=== PATIENT | male | born 1975 | race Two or more races ===

== ENCOUNTER 2020-04-30 12:10 | Emergency (ER) | payer MEDICAID ==
[~2020-04-30] VITALS: Ht 165.1 cm; Wt 81.6 kg
[2020-04-30] MEDS ORDERED: ONDANSETRON HCL/PF 4 MG/2 ML VIAL ONE (13:52)
[2020-04-30] MEDS ORDERED: KETOROLAC TROMETHAMINE 15 MG/ML VIAL ONE (13:52)
[2020-04-30 13:54] LABS: BASOPHILS % (AUTO) 0.4 % (0.0-2.0); EOSINOPHILS % (AUTO) 0.1 % (0.0-6.0); HEMATOCRIT 46 % (39-51); HEMOGLOBIN 15.3 g/dL (13.5-17.5); LYMPHOCYTES # (AUTO) 0.8 /CMM (0.8-4.8); LYMPHOCYTES % (AUTO) 14.7 % (20.0-44.0); MEAN CORPUSCULAR HGB CONC 34 g/dl (31.0-36.0); MEAN CORPUSCULAR VOLUME 89 fL (80-96); MONOCYTES # (AUTO) 0.5 /CMM (0.1-1.30); MONOCYTES % (AUTO) 8.4 % (2.0-12.0); NEUTROPHILS # (AUTO) 4.3 /CMM (1.8-8.9); NEUTROPHILS % (AUTO) 76.4 % (43.0-81.0); PLATELET COUNT (AUTO) 162 /CMM (150-450); RED BLOOD CELL COUNT(AUTO) 5.11 MIL/uL (4.5-6.0); WHITE BLOOD COUNT (AUTO) 5.7 K/uL (4.3-11.0)
--- NOTE | 2020-04-30 13:59 | NUR ---
Pt updated and made Aware of plan of care. Reclining in [facility] NO distress
[2020-04-30] MEDS ORDERED: ONDANSETRON HCL/PF 4 MG/2 ML VIAL IV ONE (14:00)
[2020-04-30] MEDS ORDERED: IV NS 0.9% 1,000 ML BAG IV ONE (14:00)
[2020-04-30] MEDS ORDERED: KETOROLAC TROMETHAMINE INJ 30 MG/ML VIAL IV ONE (14:00)
[2020-04-30 14:01] LABS: CALCIUM, SERUM 8.6 mg/dL (8.5-10.1); CARBON DIOXIDE 31 mmol/L (21-32); CHLORIDE 100 mmol/L (98-107); CREATININE 1.1 mg/dL (0.6-1.3); GLUCOSE 107 mg/dL (74-106); POTASSIUM 3.3 mmol/L (3.5-5.1); SODIUM SERUM 138 mmol/L (136-145); UREA NITROGEN, BLOOD 11 mg/dL (7-18)
--- NOTE | 2020-04-30 15:25 | NUR ---
Patient discharged to home in stable condition. Written and verbal after care instructions given. Patient verbalizes understanding of instruction. IV removed. Catheter intact and site benign. Pressure and 4x4 applied to site. No bleeding noted.
[2020-04-30 15:54] VITALS: BP 132/75
== END 2020-04-30 15:55 | disposition home or self-care (01) ==
LOC: ER 12:13
DX: J02.9 Acute pharyngitis, unspecified (principal); B34.9 Viral infection, unspecified; R11.0 Nausea; M79.10 Myalgia, unspecified site; R55 Syncope and collapse; E87.6 Hypokalemia; I10 Essential (primary) hypertension
CPT/HCPCS: 36415; 71045; 80048; 82962; 84484; 85025; 87070; 87880; 93005; 96374; 96375; 99285; J1885; J2405; J7030; 86403-TC

== ENCOUNTER 2020-12-03 10:02 | Inpatient (IN) | payer MEDICAID ==
[~2020-12-03] VITALS: Ht 165.1 cm; Wt 80.3 kg
--- NOTE | 2020-12-03 10:10 | NUR ---
The patient BIB for c/o testicular pain x 2 days. The patient stated having hx of hernia. He rates pain 10/10. The patient in room air and denies sob. Respiration regular and unlabored. A warm blanket provided for comfort. Will continue to monitor.
[2020-12-03] MEDS ORDERED: ONDANSETRON HCL/PF 4 MG/2 ML VIAL ONE ×2 (10:25→20:35)
[2020-12-03] MEDS ORDERED: MORPHINE SULFATE INJ 4 MG/ML DISP.SYRIN ONE (10:25)
[2020-12-03] MEDS ORDERED: ONDANSETRON HCL/PF 4 MG/2 ML VIAL IVP ONE (10:30)
[2020-12-03] MEDS ORDERED: IV NS 0.9% 1,000 ML BAG IV ONE (10:30)
[2020-12-03] MEDS ORDERED: MORPHINE SULFATE INJ 2 MG/ML DISP.SYRIN IV ONE (10:30)
[2020-12-03 10:35] LABS: BASOPHILS % (AUTO) 0.3 % (0.0-2.0); EOSINOPHILS % (AUTO) 0.9 % (0.0-6.0); HEMATOCRIT 47 % (39-51); HEMOGLOBIN 16.2 g/dL (13.5-17.5); LYMPHOCYTES # (AUTO) 1.8 /CMM (0.8-4.8); LYMPHOCYTES % (AUTO) 31.3 % (20.0-44.0); MEAN CORPUSCULAR HGB CONC 35 g/dl (31.0-36.0); MEAN CORPUSCULAR VOLUME 86 fL (80-96); MONOCYTES # (AUTO) 0.3 /CMM (0.1-1.30); MONOCYTES % (AUTO) 5.8 % (2.0-12.0); NEUTROPHILS # (AUTO) 3.6 /CMM (1.8-8.9); NEUTROPHILS % (AUTO) 61.7 % (43.0-81.0); PLATELET COUNT (AUTO) 187 /CMM (150-450); RED BLOOD CELL COUNT(AUTO) 5.45 MIL/uL (4.5-6.0); WHITE BLOOD COUNT (AUTO) 5.9 K/uL (4.3-11.0)
--- NOTE | 2020-12-03 10:35 | NUR ---
patient taken for CT.
[2020-12-03 10:45] LABS: BILIRUBIN,DIRECT 0.2 mg/dL (0.0-0.2); BILIRUBIN,TOTAL 0.9 mg/dL (0.2-1.0); CALCIUM, SERUM 9.1 mg/dL (8.5-10.1); CREATININE 1.1 mg/dL (0.6-1.3); TOTAL PROTEIN, SERUM 8.3 g/dL (6.4-8.2)
--- NOTE | 2020-12-03 10:47 | NUR ---
the patient is back from CT.
[2020-12-03 11:17] LABS: POTASSIUM 3.5 mmol/L (3.5-5.1)
[2020-12-03] MEDS ORDERED: AMLO2.5T4 PO (11:31)
[2020-12-03] MEDS ORDERED: HYDROCODONE/APAP 5/325MG TABLET PO PRN (12:00)
[2020-12-03] MEDS ORDERED: ACETAMINOPHEN 325 MG TABLET PO PRN (12:00)
[2020-12-03] MEDS ORDERED: Z GUARD REMEDY 2 OZ OINT TP PRN (12:00)
[2020-12-03] MEDS ORDERED: ZOLPIDEM TARTRATE 5 MG TABLET PO PRN (12:00)
[2020-12-03] MEDS ORDERED: ONDANSETRON HCL/PF 4 MG/2 ML VIAL IVP PRN (12:00)
[2020-12-03] MEDS ORDERED: MAGNESIUM HYDROXIDE 30 ML UDC PO PRN (12:00)
[2020-12-03] MEDS ORDERED: MAG HYDROX/AL HYDROX/SIMETH 30 ML UDC PO PRN (12:00)
--- NOTE | 2020-12-03 12:13 | NUR ---
Covid negative per lab.
--- NOTE | 2020-12-03 12:14 | NUR ---
NURSING SUP GAVE BED 106.
--- NOTE | 2020-12-03 12:17 | NUR ---
Dr Naranjo is made aware of patient`s blood pressure of 172/112 and pulse 78. Per MD she will place an order.
[2020-12-03] MEDS ORDERED: hydrALAZINE HCL IV 20 MG VIAL ONE ×2 (12:22→19:56)
[2020-12-03] MEDS ORDERED: hydrALAZINE HCL IV 20 MG VIAL IV ONE (12:30)
--- NOTE | 2020-12-03 12:44 | NUR ---
Patient is transfered to room 106. The patient left ER in stable condition. Receiving nurse is reminded to recheck the vitals since the patient had elevated BP and iv push Apresoline was given.
--- NOTE | 2020-12-03 12:51 | NUR ---
PATIENT RECEIVED IN BED ON ROOM AIR, ALERT AND ORIENTED X 4. PATIENT HAS VITALS TEMP 98.3, HR 85, RR 20, O2 SAT 99%, BP 163/102. PATIENT CURRENTLY HAS PAIN 1/10 AFTER GIVEN MORPHINE IN ER. PATIENT IS NPO FOR SURGERY AT 1630. LAC C20 G INTACT AND IN PLACE, FLUSHED WELL WITH NO SIGNS OF INFECTION OR INFILTRATION. WILL CONTINUE TO MONITOR
--- NOTE | 2020-12-03 13:00 | NUR ---
PER SPINNING FRAME TENDER MATTHEW, PATIENT TO GIVE CONSENT TO OR STAFF AFTER DR EXPLAINS PROCEDURE. PRE-OP CHECKLIST ONLY NEEDS TO BE COMPLETE.
[2020-12-03] MEDS ORDERED: ANESTHESIA TRAY IN PYXIS 1 EA TRAY MC ONE (14:56)
[2020-12-03 16:00] VITALS: BP 143/103
[2020-12-03] MEDS ORDERED: MIDAZOLAM HCL 2 MG/2ML VIAL ONE (17:36)
[2020-12-03] MEDS ORDERED: FENTANYL PF 250MCG/5ML AMPUL ONE (17:36)
[2020-12-03] MEDS ORDERED: FAMOTIDINE/PF INJ 20 MG/2 ML VIAL IV ONE (17:37)
[2020-12-03] MEDS ORDERED: HYDROMORPHONE INJ 2 MG/ML DISP.SYRIN ONE (17:37)
[2020-12-03] MEDS ORDERED: ROCURONIUM BROMIDE 50 MG/5 ML ONE (17:38)
--- NOTE | 2020-12-03 17:45 | NUR ---
PATIENT TAKEN TO OR, ABLE TO SIGN BLOOD TRANSFUSION AND ANESTHESIA CONSENT AT BEDSIDE, SURGEON TO OBTAIN PROCEDURE CONSENT IN OR. ALL BELONGINGS LEFT IN ROOM
[2020-12-03] MEDS ORDERED: BUPIVACAINE 0.25% 75 MG/30 ML VIAL ONE (18:21)
--- NOTE | 2020-12-03 18:34 | NUR ---
PATIENT REMAINS IN THE OR, WILL ENDORSE ALL NEEDS TO ONCOMING RN
[2020-12-03 20:40] VITALS: BP 138/85
--- NOTE | 2020-12-03 20:40 | NUR ---
RECEIVED PT FROM OR VIA HOSPITAL BED AWAKE A/O X4 ON O2 2L VIA NC SPO2 96% ABLE TO VERBALIZED NEEDS, V/S CHECKED AND RECORDED PUT ON TELE MONITOR WITH READING SINUS RHYTHM 70'S HAVE CLEAN DRESSING ON LOWER ABDOMEN AREA, NO BLEEDING NOTED, PT DENIES ANY PAIN AT THIS MOMENT PT ASK FOR WATER ABLE TO DRINK A LITTLE WITHOUT ANY COUGHING MAY START TO REGULAR DIET IN AM GRADUALLY STARTING TO CLEAR LIQUID FOR NOW, BED ON LOWEST POSITION AND LOCKED SIDE RAILS UP X2 CALL LIGHT WITHIN REACH WILL CONT TO MONITOR THE PT
--- NOTE | 2020-12-04 02:11 | NUR ---
PT IS FEELING NAUSEATED AND TRYING TO THROW UP OFFER HIM THE ZOFRAN BUT PT REFUSED AND SAYS YESTERDAY IT DID NOT HELP HIM, INSTEAD OFFER HIM SOME ICE CHIPS AND HE ACCEPT IT, WILL CONT TO MONITOR THE PT
[2020-12-04 04:00] VITALS: BP 108/73
--- NOTE | 2020-12-04 06:51 | NUR ---
PT ON BED ASLEEP INTERMITTENTLY EASY TO WAKE UP CURRENTLY ON ROOM AIR SPO2 94-96% NO SIGN OF DISTRESS, TELE MONITOR READS SINUS RHYTHM, NAUSEA SUBSIDE WITH ICE CHIPS, NO PAIN COMPLAINED ON THE SURGERY SITE, SURGERY DRESSING IS INTACT AND NO BLEEDING NOTED, ALL NEEDS ATTENDED, BED ON LOWEST POSITION AND LOCKED SIDE RAILS UP X 2 CALL LIGHT WITHIN REACH WILL ENDORSED TO AM SHIFT NURSE
[2020-12-04 06:52] LABS: BASOPHILS % (AUTO) 0.1 % (0.0-2.0); HEMATOCRIT 42 % (39-51); HEMOGLOBIN 14.3 g/dL (13.5-17.5); LYMPHOCYTES # (AUTO) 0.5 /CMM (0.8-4.8); LYMPHOCYTES % (AUTO) 3.6 % (20.0-44.0); MEAN CORPUSCULAR HGB CONC 34 g/dl (31.0-36.0); MEAN CORPUSCULAR VOLUME 87 fL (80-96); MONOCYTES # (AUTO) 0.4 /CMM (0.1-1.30); MONOCYTES % (AUTO) 3.3 % (2.0-12.0); NEUTROPHILS # (AUTO) 11.6 /CMM (1.8-8.9); PLATELET COUNT (AUTO) 186 /CMM (150-450); RED BLOOD CELL COUNT(AUTO) 4.88 MIL/uL (4.5-6.0); WHITE BLOOD COUNT (AUTO) 12.4 K/uL (4.3-11.0)
[2020-12-04 07:11] LABS: CALCIUM, SERUM 8.1 mg/dL (8.5-10.1); CREATININE 1.3 mg/dL (0.6-1.3); PHOSPHORUS 3.7 mg/dL (2.5-4.9); POTASSIUM 3.6 mmol/L (3.5-5.1)
--- NOTE | 2020-12-04 07:45 | NUR ---
RN OPENING NOTES Patient received up in his chair by bedside and no s/s of respiratory distress. No c/o pain or discomfort. Patient teaching done regarding safety and fall precautions. LAC 20 GAUZE noted to be patent and flushed well. Will continue to monitor. Call light within reach.
[2020-12-04 08:00] VITALS: BP 129/81
[2020-12-04] MEDS ORDERED: AMLODIPINE BESYLATE 2.5 MG TABLET PO SCH (09:00)
[2020-12-04] MEDS: MORPHINE SULFATE INJ 2 MG/ML DISP.SYRIN IV PRN ×2 (14:29→14:33)
[2020-12-04 16:00] VITALS: BP 150/81
--- NOTE | 2020-12-04 16:00 | NUR ---
Patient discharged to home in stable condition. No c/o pain or discomfort. all belongings given. Iv peripheral dc'd and no s/s of active bleeding noted. Patient teaching done regarding monitoring for s/s of infection and drainage.Patient instructed to Follow up with Dr Pierre with in a week. Left hospital in stable condition,.
== END 2020-12-04 17:30 | disposition home or self-care (01) | DRG 228 ==
LOC: ER 10:02 → MEDSG1 12:22
PROVIDERS: ADMIT Family Medicine; ATTEND Family Medicine
PROC: 0YU50JZ Supplement Right Inguinal Region with Synthetic Substitute, Open Approach (ICD-10-PCS; principal; 2020-12-03)
DX: K40.30 Unilateral inguinal hernia, with obstruction, without gangrene, not specified as recurrent (principal); I10 Essential (primary) hypertension; Z20.822 Contact with and (suspected) exposure to COVID-19; Z90.49 Acquired absence of other specified parts of digestive tract; Z79.899 Other long term (current) drug therapy; D72.829 Elevated white blood cell count, unspecified
CPT/HCPCS: 36415; 71045-TC; 80048-TC; 80061-TC; 80076-TC; 83690-TC; 83735-TC; 84100-TC; 85025-TC; 85730-TC; 87081-TC; A6209; C1781; C9803; G0378; J0360; J0690; J1170; J1885; J2250; J2270; J2405; J2704; J2765; J3010; J3490; J7030

== ENCOUNTER 2021-06-24 16:21 | Inpatient (IN) | payer MEDICAID ==
[~2021-06-24] VITALS: Ht 165.1 cm; Wt 78.0 kg
[~2021-06-24 16:21] MED LIST: AMLO2.5T4 PO
--- NOTE | 2021-06-24 16:30 | NUR ---
Patient came in to the er c/o dizziness and numbness of the left face since 9am this mronign. on room air, breathing evenly and unlabored. Connected to the monitor and pulse ox. kept comfortable, will continue to monitor accordingly.
[2021-06-24 16:58] LABS: BASOPHILS # (AUTO) 0.2 K/uL (0.0-0.2); BASOPHILS % (AUTO) 2.2 % (0.0-2.0); EOSINOPHILS % (AUTO) 2.8 % (0.0-6.0); HEMATOCRIT 46 % (39-51); HEMOGLOBIN 15.5 g/dL (13.5-17.5); LYMPHOCYTES # (AUTO) 1.2 K/uL (0.8-4.8); LYMPHOCYTES % (AUTO) 16.8 % (20.0-44.0); MEAN CORPUSCULAR HGB CONC 34 g/dl (31.0-36.0); MEAN CORPUSCULAR VOLUME 87 fL (80-96); MONOCYTES # (AUTO) 0.4 K/uL (0.1-1.30); MONOCYTES % (AUTO) 5.3 % (2.0-12.0); NEUTROPHILS # (AUTO) 5.2 K/uL (1.8-8.9); NEUTROPHILS % (AUTO) 72.9 % (43.0-81.0); PLATELET COUNT (AUTO) 204 K/uL (150-450); RED BLOOD CELL COUNT(AUTO) 5.21 MIL/uL (4.5-6.0); WHITE BLOOD COUNT (AUTO) 7.1 K/uL (4.3-11.0)
[2021-06-24] MEDS ORDERED: IV NS 0.9% 1,000 ML BAG IV ONE (17:00)
--- NOTE | 2021-06-24 17:00 | NUR ---
MOVE SHEET SUBMITTED.
[2021-06-24 17:14] LABS: ALANINE AMINOTRANSFERASE 64 U/L (12-78); ALBUMIN 4.2 g/dL (3.4-5.0); ALKALINE PHOSPHATASE 100 U/L (46-116); ASPARTATE AMINOTRANSFERASE 34 U/L (15-37); BILIRUBIN,DIRECT 0.2 mg/dL (0.0-0.2); BILIRUBIN,TOTAL 0.9 mg/dL (0.2-1.0); CALCIUM, SERUM 9.1 mg/dL (8.5-10.1); CARBON DIOXIDE 32 mmol/L (21-32); CHLORIDE 106 mmol/L (98-107); CREATININE 1.2 mg/dL (0.6-1.3); GLUCOSE 104 mg/dL (74-106); POTASSIUM 3.4 mmol/L (3.5-5.1); SODIUM SERUM 144 mmol/L (136-145); TOTAL PROTEIN, SERUM 8.5 g/dL (6.4-8.2); UREA NITROGEN, BLOOD 14 mg/dL (7-18)
[2021-06-24] MEDS ORDERED: IV NS 0.9% 250 ML IV ONE (17:26)
[2021-06-24] MEDS ORDERED: IOHEXOL-350 100 ML VIAL IV ONE (17:26)
[2021-06-24] MEDS ORDERED: LABETALOL HCL IV 100MG VIAL ONE (18:26)
[2021-06-24] MEDS ORDERED: LABETALOL HCL IV 100MG VIAL IV ONE (18:30)
[2021-06-24] MEDS ORDERED: ONDANSETRON HCL/PF 4 MG/2 ML VIAL IVP PRN (19:00)
[2021-06-24] MEDS ORDERED: MORPHINE SULFATE INJ 2 MG/ML DISP.SYRIN IV PRN (19:00)
[2021-06-24] MEDS ORDERED: hydrALAZINE HCL IV 20 MG VIAL IV ONE (19:00)
[2021-06-24] MEDS ORDERED: ACETAMINOPHEN 325 MG TABLET PO PRN (19:00)
--- NOTE | 2021-06-24 19:03 | NUR ---
covid swab collected and sent to lab.
--- NOTE | 2021-06-24 19:05 | NUR ---
REC'D REPORT FROM ODESSA MONROY FOR REBECCA
[2021-06-24] MEDS ORDERED: LABETALOL HCL IV 100MG VIAL IV PRN (19:30)
--- NOTE | 2021-06-24 19:59 | NUR ---
CALLED FOR COVID SWAB
[2021-06-24 20:33] LABS: BILIRUBIN,URINE Negative (NEGATIVE); COLOR,URINE YELLOW (YELLOW); LEUKOCYTE ESTERASE ,URINE Negative (NEGATIVE); NITRITE, URINE Negative (NEGATIVE); PH,URINE 7.5 (5.0-8.0); PROTEIN,URINE Negative (NEGATIVE); UGLUCOSE Negative (NEGATIVE)
[2021-06-24 20:35] LABS: BACTERIA,URINE Rare /HPF (None Seen); RBC,URINE NONE SEEN /HPF (0-2); SQUAMOUS EPITHELIAL CELL,UR Few /HPF (None Seen); WBC,URINE NONE SEEN /HPF (0-3)
--- NOTE | 2021-06-24 23:12 | NUR ---
TELE 322-2
--- NOTE | 2021-06-24 23:28 | NUR ---
REPORT GIVEN TO HARMEET
--- NOTE | 2021-06-25 00:07 | NUR ---
transported to [facility] on monitor per acls protocol without incident
--- NOTE | 2021-06-25 00:10 | NUR ---
FINISHING RANGE FEEDERCONTROL ROOM SUPERVISOR NOTE RECEIVED PT FROM Laurie TO RM.[id number] ACCOMPANIED BY RN. ADMITTED FOR CVA R/O. PT A/OX4, AMBULATORY WITH STEADY GAIT. NO C/O PAIN/DISCOMFORT AT THIS TIME. NOTED WITH L-FACIAL DROOP WHEN HE TALKS, AND HE REPORTS TWITCHING TO HIS L-EYE. HE DENIES ANY NUMBNESS, DIZZINESS NOR WEAKNESS AT THIS TIME. PT AMBULATED TO BR TO VOID, WITH STEADY GAIT. IV SITE ON R-AC 18G INTACT/PATENT/FLUSHES WELL. CONNECTED TO TELE MONITOR AND READS SR 67. PT IN NO ACUTE DISTRESS. ORIENTED TO ROOM AND STAFF, HEALTH TEACHINGS PROVIDED, AND INSTRUCTED TO USE CALL LIGHT FOR ASSISTANCE. PT VERBALIZED UNDERSTANDING. SAFETY MEASURES IN PLACE, BED IN LOWEST LOCKED POSITION, S/R UPX2, CALL LIGHT WITHIN REACH. WILL CONT TO MONITOR.
[2021-06-25 00:28] VITALS: BP 166/110
[2021-06-25 00:30] VITALS: BP 166/110
[2021-06-25] MEDS: hydrALAZINE HCL IV 20 MG VIAL IV PRN ×2 (01:10→09:26)
--- NOTE | 2021-06-25 01:10 | NUR ---
RN NOTE HYDRALAZINE 10MG IVP GIVEN ORDERED FOR BP 166/110
[2021-06-25] MEDS: ENOXAPARIN SODIUM 40 MG/0.4 ML DISP.SYRIN SQ SCH ×2 (01:27→21:24)
[2021-06-25 01:40] VITALS: BP 159/102
--- NOTE | 2021-06-25 01:40 | NUR ---
RN NOTE REASSESSED BP DOWN TO 159/102
--- NOTE | 2021-06-25 01:48 | NUR ---
RN NOTE GIVEN ZOFRAN ORDERED FOR C/O NAUSEA. KEPT LOW STIMULI AND LIGHTS DIMMED
--- NOTE | 2021-06-25 02:18 | NUR ---
RN NOTE REASSESSED, PT SLEEPING AT THIS TIME.
[2021-06-25 03:34] VITALS: BP 149/99
[2021-06-25 04:00] VITALS: BP 149/99
--- NOTE | 2021-06-25 04:00 | NUR ---
RN NOTE BP 149/99
--- NOTE | 2021-06-25 05:31 | NUR ---
MRI APPROVED, GENERAL FOUNDRY WORKER NOTIFIED VIA TEXT.
[2021-06-25 06:23] LABS: BASOPHILS % (AUTO) 0.3 % (0.0-2.0); EOSINOPHILS % (AUTO) 0.9 % (0.0-6.0); HEMATOCRIT 44 % (39-51); HEMOGLOBIN 14.9 g/dL (13.5-17.5); LYMPHOCYTES # (AUTO) 1.4 K/uL (0.8-4.8); LYMPHOCYTES % (AUTO) 13.7 % (20.0-44.0); MEAN CORPUSCULAR HGB CONC 34 g/dl (31.0-36.0); MEAN CORPUSCULAR VOLUME 88 fL (80-96); MONOCYTES # (AUTO) 0.4 K/uL (0.1-1.30); MONOCYTES % (AUTO) 4.1 % (2.0-12.0); NEUTROPHILS # (AUTO) 8.2 K/uL (1.8-8.9); PLATELET COUNT (AUTO) 197 K/uL (150-450); RED BLOOD CELL COUNT(AUTO) 5.04 MIL/uL (4.5-6.0); WHITE BLOOD COUNT (AUTO) 10.1 K/uL (4.3-11.0)
[2021-06-25 06:46] LABS: ALBUMIN 3.8 g/dL (3.4-5.0); BILIRUBIN,TOTAL 1.2 mg/dL (0.2-1.0); CALCIUM, SERUM 8.4 mg/dL (8.5-10.1); MAGNESIUM 2.5 mg/dL (1.8-2.4); PHOSPHORUS 2.6 mg/dL (2.5-4.9); POTASSIUM 3.4 mmol/L (3.5-5.1); TOTAL PROTEIN, SERUM 7.7 g/dL (6.4-8.2)
--- NOTE | 2021-06-25 07:10 | NUR ---
TELETYPE MECHANIC CLOSING NOTE PT AWAKE, A/OX4. NO SOB. DENIES ANY PAIN AT THIS TIME. NO C/O NUMBNESS, DIZZINESS NOR WEAKNESS AT THIS TIME. AMBULATES TO BR WITH STEADY GAIT. IV SITE ON R-AC 18G INTACT/PATENT/FLUSHES WELL. ON TELE MONITOR READING SR 82. PT FAILED NSG SWALLOW SCREEN D/T FACIAL ASYMMETRY WITH MOVEMENT. PT NPO UNTIL ST EVAL IS DONE. PT AWARE AND VERBALIZED UNDERSTANDING. NO ACUTE DISTRESS NOTED. SAFETY MEASURES MAINTAINED, BED IN LOWEST LOCKED POSITION, S/R UPX2, CALL LIGHT WITHIN REACH.
--- NOTE | 2021-06-25 07:41 | NUR ---
DRAIN TILER OPENING NOTES RECEIVED PATIENT IN BED, AWAKE, A/O X4. PATIENT ON ROOM AIR; BREATHING EVEN AND UNLABORED; NO SOB NOTED AT THIS TIME. NO COMPLAINS OF PAIN. TELE MONITOR WITH A CURRENT READING OF SR 82. IV ACCESS AT [facility] G # 18; SL. SAFETY PRECAUTIONS IN PLACE; BED IN LOW POSITION AND LOCKED, RAILS UP X2, CALL LIGHT WITHIN REACH. WILL CONTINUE TO MONITOR PATIENT.
--- NOTE | 2021-06-25 09:30 | NUR ---
PHLEBOTOMY TECH NOTES PATIENT WITH ELEVATED BP OF 165/103 HR 82 PRN APRESOLINE 0.5 MLS ADMINISTERED. WILL REASSESS.
--- NOTE | 2021-06-25 10:30 | NUR ---
LEATHER CARVER NOTES PATIENT LEFT FOR MRI
[2021-06-25] MEDS ORDERED: POTASSIUM CHLORIDE 20 MEQ TAB.PRT.SR PO SCH (11:00)
--- NOTE | 2021-06-25 11:15 | NUR ---
SMALL BATTERY PLATE ASSEMBLER NOTES PATIENT BACK FROM MRI
[2021-06-25] MEDS: ACYCLOVIR 800 MG TABLET PO SCH ×2 (12:37→16:34)
[2021-06-25] MEDS: predniSONE 20 MG TABLET PO SCH ×2 (12:37→16:35)
[2021-06-25] MEDS: LISINOPRIL (20MG) 20 MG TABLET PO SCH (12:39)
--- NOTE | 2021-06-25 18:40 | NUR ---
APPEALS SPECIALIST CLOSING NOTES PATIENT REMAINS IN BED, AWAKE, A/O X4. PATIENT ON ROOM AIR; BREATHING EVEN AND UNLABORED; NO SOB NOTED DURING THE DAY. NO COMPLAINS OF PAIN. TELE MONITOR WITH A CURRENT READING OF SR. IV ACCESS AT [facility] # 18; SL. ALL NEEDS ATTENDED DURING THE DAY. SAFETY PRECAUTIONS IN PLACE; BED IN LOW POSITION AND LOCKED, RAILS UP X2, CALL LIGHT WITHIN REACH. WILL ENDORSE TO DIAGNOSTIC ASSISTANT NURSE.
--- NOTE | 2021-06-25 19:51 | NUR ---
SHRINK PIT SUPERVISOR OPENING NOTES RECEIVED PT IN BED, AWAKE, A/O X4. PATIENT ON ROOM AIR AND TOLERATING WELL. NO SOB NOTED. NO S/SX OF RESPIRATORY DISTRESS NOTED. NO COMPLAINTS OF PAIN AT THIS TIME. TELE MONITOR WITH A CURRENT READING OF SINUS RHYTHM WITH RATE OF 85. IV ACCESS AT [facility] #18G; IV IS INTACT, PATENT, FLUSHING WELL, AND SALINE LOCKED. SAFETY PRECAUTIONS IN PLACE; BED IN LOWEST, LOCKED POSITION, BRAKES ON, SIDERAILS UP X2. CALL LIGHT AND TABLE WITHIN REACH. WILL CONTINUE TO MONITOR.
[2021-06-25 20:00] VITALS: BP 145/94
[2021-06-26 04:00] VITALS: BP 118/72
--- NOTE | 2021-06-26 06:27 | NUR ---
RETAIL MERCHANDISING MANAGER CLOSING NOTES PT IN BED, ASLEEP, AWAKENS TO VERBAL STIMULI. A/O X4. PATIENT ON ROOM AIR AND TOLERATING WELL. NO SOB NOTED. NO S/SX OF RESPIRATORY DISTRESS NOTED. NO COMPLAINTS OF PAIN AT THIS TIME. TELE MONITOR WITH A CURRENT READING OF SINUS RHYTHM WITH RATE OF 85. IV ACCESS AT [facility] #18G; IV IS INTACT, PATENT, FLUSHING WELL, AND SALINE LOCKED. ALL NEEDS MET. PT KEPT CLEAN AND DRY. SAFETY PRECAUTIONS IN PLACE; BED IN LOWEST, LOCKED POSITION, BRAKES ON, SIDERAILS UP X2. CALL LIGHT AND TABLE WITHIN REACH. WILL ENDORSE TO ONCOMING SHIFT.
[2021-06-26 07:18] LABS: CALCIUM, SERUM 9.3 mg/dL (8.5-10.1); POTASSIUM 3.6 mmol/L (3.5-5.1)
[2021-06-26 08:00] VITALS: BP 135/93
--- NOTE | 2021-06-26 08:00 | NUR ---
received pt. in am with sl. slurred speech and facial droop.alert and oriented x4.hep lock intact,pleasant,vs stable.
[2021-06-26] MEDS ORDERED: PRED20TA PO (08:52)
[2021-06-26] MEDS ORDERED: ACYC-108 PO (08:52)
[2021-06-26] MEDS ORDERED: LISI20TA30 PO (08:52)
--- NOTE | 2021-06-26 09:30 | NUR ---
in and dc order given.family notified by pt.
[2021-06-26] MEDS: predniSONE 20 MG TABLET PO SCH (09:35)
[2021-06-26] MEDS: ACYCLOVIR 800 MG TABLET PO SCH (09:35)
[2021-06-26] MEDS: LISINOPRIL (20MG) 20 MG TABLET PO SCH (09:36)
[2021-06-26 12:15] VITALS: BP 149/100
--- NOTE | 2021-06-26 12:22 | NUR ---
discharge papers assembled.rn contacting pt's pharm. to assure steroid rx faxed there.all info given to pt. all papers signed.including belonging sheet.hep lock out. taken to lobby via w/c accompanied by book or script editor.family waiting.
== END 2021-06-26 12:22 | disposition home or self-care (01) | DRG 48 ==
LOC: ER 16:26 → TELE 23:52
PROVIDERS: ADMIT Internal Medicine; ATTEND Internal Medicine
DX: G51.0 Bell's palsy (principal); E87.6 Hypokalemia; I10 Essential (primary) hypertension; Z91.19 Patient's noncompliance with other medical treatment and regimen; R20.1 Hypoesthesia of skin; R29.702 NIHSS score 2; Z20.822 Contact with and (suspected) exposure to COVID-19
CPT/HCPCS: 36415; 70450-TC; 70496-TC; 70498-TC; 70551-TC; 71045-TC; 80048-TC; 80053-TC; 80076-TC; 81001; 83735-TC; 84100-TC; 84484-TC; 85025-TC; 87081-TC; 92526; 92611-TC; 97116-TC; 97530-TC; C9803; G0378; J0360; J1650; J2405; J3490; J7030; J7050; Q9967

== ENCOUNTER 2021-08-05 09:52 | Emergency (ER) | payer MEDICAID ==
[~2021-08-05] VITALS: Ht 170.2 cm; Wt 79.4 kg
[~2021-08-05 09:52] MED LIST changes: +ACYC-108 PO; -AMLO2.5T4 PO; +LISI20TA30 PO; +PRED20TA PO
[2021-08-05 09:56] VITALS: BP 172/100
[2021-08-05] MEDS ORDERED: LISI20TA30 PO (10:03)
--- NOTE | 2021-08-05 10:11 | NUR ---
Patient discharged to home in stable condition. Written and verbal after care instructions given. Patient verbalizes understanding of instruction.
== END 2021-08-05 10:11 | disposition home or self-care (01) ==
LOC: ER 09:52
DX: I10 Essential (primary) hypertension (principal); Z76.0 Encounter for issue of repeat prescription; Z98.890 Other specified postprocedural states

== ENCOUNTER 2022-03-31 12:17 | Emergency (ER) | payer MEDICAID ==
[~2022-03-31] VITALS: Ht 165.1 cm; Wt 81.6 kg
[2022-03-31 12:34] VITALS: BP 175/95
== END 2022-03-31 14:39 | disposition home or self-care (01) ==
LOC: ER 12:19
DX: R22.31 Localized swelling, mass and lump, right upper limb (principal); M67.431 Ganglion, right wrist; I10 Essential (primary) hypertension; Z79.899 Other long term (current) drug therapy

== ENCOUNTER 2023-12-25 12:52 | Emergency (ER) | payer MEDICAID, OTHER ==
[~2023-12-25] VITALS: Ht 165.1 cm; Wt 79.4 kg
[2023-12-25] MEDS ORDERED: IBUPROFEN 600 MG TABLET ONE (13:16)
[2023-12-25] MEDS: IBUPROFEN 600 MG TABLET PO ONE (13:18)
[2023-12-25 15:35] VITALS: BP 166/96; TEMP 98; O2SAT 96
[2023-12-26] MEDS ORDERED: OXYC-128 PO (14:24)
== END 2023-12-25 15:38 | disposition home or self-care (01) ==
LOC: ER 13:03
DX: S92.422A Displaced fracture of distal phalanx of left great toe, initial encounter for closed fracture (principal); Z79.899 Other long term (current) drug therapy; W20.8XXA Other cause of strike by thrown, projected or falling object, initial encounter; Y93.89 Activity, other specified; Y92.89 Other specified places as the place of occurrence of the external cause; Y99.8 Other external cause status
CPT/HCPCS: 73630-TC

== ENCOUNTER 2023-12-26 13:49 | Emergency (ER) | payer OTHER ==
[~2023-12-26] VITALS: Ht 165.1 cm; Wt 77.6 kg
[2023-12-26 13:59] VITALS: BP 168/109; TEMP 98.8; O2SAT 99
[2023-12-26] MEDS ORDERED: OXYC-128 PO (14:24)
[2023-12-26] MEDS: oxyCODONE/APAP (5/325 MG) 1 UDTAB TABLET PO ONE (14:30)
[2023-12-26] MEDS ORDERED: oxyCODONE/APAP (5/325 MG) 1 UDTAB TABLET ONE (14:33)
== END 2023-12-26 14:57 | disposition home or self-care (01) ==
LOC: ER 13:57
DX: S92.912D Unspecified fracture of left toe(s), subsequent encounter for fracture with routine healing (principal); M79.675 Pain in left toe(s); X58.XXXD Exposure to other specified factors, subsequent encounter